=== PATIENT | female | born 1945 | race Caucasian/White ===

== ENCOUNTER 2019-04-19 12:11 | Outpatient (CLI) | payer OTHER ==
--- NOTE | 2019-04-19 12:56 | DI ---
EXAM: Temporal mandibular joints, five views, including open and closed mild views HISTORY: Left temporal mandibular joint pain COMPARISON: None FINDINGS: No fracture identified. No dislocation or subluxation identified in open or close mouth v iew IMPRESSION: No fracture identified. No dislocation or subluxation identified in open or close mout h view
== END 2019-04-19 12:12 | disposition home or self-care (01) ==
LOC: RAD 12:11
PROVIDERS: ATTEND Family Medicine
DX: M26.622 Arthralgia of left temporomandibular joint (principal)